=== PATIENT | male | born 1975 | race Caucasian/White ===

== ENCOUNTER 2018-02-01 11:21 | Emergency (ER) | payer SELFPAY ==
[~2018-02-01] VITALS: Ht 167.6 cm; Wt 80.0 kg
[2018-02-01] MEDS ORDERED: IBUPROFEN 600MG TABLET PO STA (13:57)
[2018-02-01 15:59] VITALS: BP 112/75
== END 2018-02-01 16:01 | disposition home or self-care (01) ==
LOC: ER 13:21
DX: S42.022A Displaced fracture of shaft of left clavicle, initial encounter for closed fracture (principal); F17.200 Nicotine dependence, unspecified, uncomplicated; W18.39XA Other fall on same level, initial encounter; Y93.89 Activity, other specified; Y92.89 Other specified places as the place of occurrence of the external cause; Y99.8 Other external cause status; Z98.890 Other specified postprocedural states
CPT/HCPCS: 71045; 73030; 99284